=== PATIENT | female | born 1975 | race African-American/Black ===

== ENCOUNTER 2021-03-24 18:37 | Emergency (ER) | payer OTHER ==
[~2021-03-24] VITALS: Ht 162.6 cm; Wt 50.0 kg
[2021-03-24 21:00] VITALS: BP 139/83
--- NOTE | 2021-03-24 21:13 | PHYS DOC ---
General Adult EDM: Chief Complaint: HYPERGLYCEMIA HPI: HPI: Patient is a 45 year old female who presents with 1 day of excessive thirst, blurred vision, excessive urination, generalized weakness, nausea and vomiting. She states her only history is diabetes and she takes pills for diabetes. She cannot remember the name of these pills. Patient denies abdominal pain, burning with urination, fever, body aches, cough, chest pain, shortness of air, dizziness, headache, numbness or tingling, focal weakness, diarrhea. Received [employer] Covid vaccine. Review of Systems: Review of Systems: Constitutional: Denies fever or chills. [] Eyes: Denies change in visual acuity. [] HENT: Denies nasal congestion or sore throat. [] Respiratory: Denies cough or shortness of breath. [] Cardiovascular: Denies chest pain or edema. [] GI: Denies abdominal pain, +nausea, +vomiting, denies bloody stools or diar broderick. [] : Denies dysuria. Musculoskeletal: Denies back pain or joint pain. [] Integument: Denies rash. [] Neurologic: Denies headache, focal weakness or sensory changes. + Generalized weakness [] Endocrine: + polyuria or +polydipsia. [] Lymphatic: Denies swollen glands. [] Psychiatric: Denies depression or anxiety. [] Heart Score: C/O Chest Pain: No Current Medications: Current Medications Medications (Trade) Dose Ordered Sig/Nehemiah Start Time Stop Time Status Last Admin Dose Admin Metoclopramide HCl (Reglan Vial) 10 mg 1X ONCE 03/24/21 21:15 03/24/21 21:16 UNV Sodium Chloride 1,000 ml @ 1,000 mls/hr Q1H 03/24/21 21:15 03/24/21 22:14 UNV Physical Exam: PE: Constitutional: Well developed, well nourished, no acute distress, non-toxic appearance. [] HENT: Normocephalic, atraumatic, bilateral external ears normal, oropharynx moist, no oral exudates, nose normal. [] Eyes: PERRLA, EOMI, conjunctiva normal, no discharge. [] Neck: Normal range of motion, no tenderness, supple, no stridor. [] Cardiovascular:Heart rate regular rhythm, no murmur [] Lungs & Thorax: Bilateral breath sounds clear to auscultation [] Abdomen: Bowel sounds normal, soft, no tenderness, no masses, no pulsatile gerson s. [] Skin: Warm, dry, no erythema, no rash. [] Back: No tenderness, no CVA tenderness. [] Extremities: No tenderness, no cyanosis, no clubbing, ROM intact, no edema. [] Neurologic: Alert and oriented X 3, normal motor function, normal sensory function, no focal deficits noted. [] Psychologic: Affect normal, judgement normal, mood normal. [] Normal physical exam EKG: EK and read by Dr. Mukherjee as sinus rhythm and no STEMI Radiology/Procedures: Radiology/Procedures: [] Impression: [facility] [address] [place], [place] [id number] IMAGING REPORT Signed PATIENT: FERNANDO HARRISON ACCOUNT: [id number] : 1975 LOCATION: ER AGE: 45 SEX: F EXAM STATUS: REG ER ORD. PHYSICIAN: JERSEY GARIBAY APRN REASON: vomiting PROCEDURE: PORTABLE CHEST 1V Exam: Chest one view INDICATION: Vomiting TECHNIQUE: Frontal view of the chest Comparisons: None FINDINGS: The cardiomediastinal silhouette and pulmonary vessels are within normal limits. The lung and pleural spaces are clear. IMPRESSION: No acute cardiopulmonary process. Electronically signed by: Kuldip Sanders MD (03/24/2021 9:45 PM) [facility] DICTATED and SIGNED BY: KULDIP SANDERS MD DATE: 03/24/21 [id number] 0 Course & Med Decision Making: Course & Med Decision Making Pertinent Labs and Imaging studies reviewed. (See chart for details) See HPI. Alert and oriented x4. Ambulatory steady gait. Speaks in full clear sentences. Football Pad Repairer is used. Abdomen is soft and nontender. Skin pink warm and dry. Patient is given a liter of fluid and Rocephin. She does have a urinary tract infection. Blood sugar upon arrival was 367 after a liter of fluid that has gone down into the 200s without any medication. Patient is stable she can follow-up at [facility] in [facility] where she gets her medical care. I will write her an antibiotic for her urinary tract infection. Blood glucose recheck after bolus of fluid was 269. [] Carmen Disclaimer: Carmen Disclaimer: This electronic medical record was generated, in whole or in part, using a voice recognition dictation system. Departure Departure Impression: Primary Impression: Hyperglycemia Additional Impression: UTI (urinary tract infection) Qualified Codes: N39.0 - Urinary tract infection, site not specified Disposition: HOME / SELF CARE / HOMELESS Condition: STABLE Referrals: UNKNOWN PCP NAME (PCP) Patient Instructions: Hyperglycemia, Urinary Tract Infection Additional Instructions: Follow-up with your medical clinic as soon as possible. Drink plenty of fluids. Take medication as prescribed and with food. Continue taking your prescribed medications. If your symptoms worsen or you begin vomiting and cannot keep down fluids return to the emergency room. Scripts Cephalexin (KEFLEX) 500 Mg Capsule 1 CAP PO TID, #21 CAP Prov: JERSEY GARIBAY APRN 03/25/21 JERSEY GARIBAY APRN Mar 24, 2021 21:13
[2021-03-24] MEDS ORDERED: IV NORMAL SALINE 1000ML BAG 1,000 ML IV SCH (21:15)
[2021-03-24] MEDS ORDERED: METOCLOPRAMIDE HCL 10 MG/2 ML VIAL. IVP ONE (21:15)
[2021-03-24 21:22] LABS: BILIRUBIN,URINE NEGATIVE (NEG); CLARITY,URINE CLEAR; COLOR,URINE YELLOW; NITRITE,URINE NEGATIVE (NEG); PROTEIN,URINE 100 mg/dL (NEG-TRACE)
[2021-03-24 21:29] LABS: BACTERIA,URINE MODERATE /HPF (0-FEW); RBC,URINE OCC /HPF (0-2)
[2021-03-24] MEDS ORDERED: cefTRIAXone IV Push 1 GM VIAL. IVP ONE (21:45)
--- NOTE | 2021-03-24 21:47 | RAD ---
Exam: Chest one view INDICATION: Vomiting TECHNIQUE: Frontal view of the chest Comparisons: None FINDINGS: The cardiomediastinal silhouette and pulmonary vessels are within normal limits. The lung and pleural spaces are clear. IMPRESSION: No acute cardiopulmonary process. Electronically signed by: Kuldip Nix MD (03/24/2021 9:45 PM) ERASMO
[2021-03-24 21:49] LABS: BASO # 0.1 x10^3/uL (0.0-0.2); BASO % 1 % (0-3); EOS # 0.3 x10^3/uL (0.0-0.7); EOS % 3 % (0-3); HEMATOCRIT 40.4 % (36.0-47.0); HEMOGLOBIN 13.7 g/dL (12.0-15.5); LYMPH % 56 % (24-48); MEAN CORPUSCULAR HEMOGLOBIN 34 pg (25-35); MEAN CORPUSCULAR HGB CONC 34 g/dL (31-37); MEAN CORPUSCULAR VOLUME 100 fL (79-100); MONO # 0.6 x10^3/uL (0.0-1.1); MONO % 7 % (0-9); NEUT # 2.9 x10^3/uL (1.8-7.7); NEUT % 33 % (31-73); PLATELET COUNT 258 x10^3/uL (140-400); RED BLOOD COUNT 4.03 x10^6/uL (3.50-5.40); RED CELL DISTRIBUTION WIDTH 12.9 % (11.5-14.5); WHITE BLOOD COUNT 8.8 x10^3/uL (4.0-11.0)
[2021-03-24 21:57] LABS: CREATININE 0.9 mg/dL (0.6-1.0); GFR 81.2; POTASSIUM 4.4 mmol/L (3.5-5.1)
[2021-03-24 22:02] LABS: ALBUMIN 3.7 g/dL (3.4-5.0); ALBUMIN/GLOBULIN RATIO 0.8 (1.0-1.7); TOTAL BILIRUBIN 0.6 mg/dL (0.2-1.0); TOTAL PROTEIN 8.1 g/dL (6.4-8.2)
[2021-03-24 23:50] LABS: INFLUENZA A PATIENT NEGATIVE (NEGATIVE); INFLUENZA B PATIENT NEGATIVE (NEGATIVE)
[2021-03-25] MEDS ORDERED: CEPH500C PO (00:13)
--- NOTE | 2021-03-25 05:38 | EKG ---
[facility] [address] [place] [address] Test Date: 2021-03-24 Test Time: 23:01:31 Pat Name: FERNANDO HARRISON Department: Room: Gender: [employer] [place] [place]: : 1975 Requested By: JERSEY GARIBAY Order Number: [id number] Reading MD: Misael Castaneda MD Measurements Intervals [place] Rate: 73 P: 9 [place]: 134 QRS: 37 QRSD: 62 T: 7 QT: 384 QTc: 427 Interpretive Statements SINUS RHYTHM Electronically Signed On 03-25-2021 13:23:45 NIGHT CLUB MANAGER by Misael Castaneda MD
--- NOTE | 2021-03-25 15:19 | NUR ---
IP: Attempted to contact pt concerning covid results. No one in home speaks [place] and unable to understand. Will try transportation engineer line when available.
== END 2021-03-25 00:35 | disposition home or self-care (01) ==
LOC: ER 18:37
DX: E11.65 Type 2 diabetes mellitus with hyperglycemia (principal); N39.0 Urinary tract infection, site not specified; Z20.822 Contact with and (suspected) exposure to COVID-19
CPT/HCPCS: 36415; 71045; 80053; 81001; 82010; 82962; 83690; 85025; 87086; 87426; 87804; 93005; 96361; 96374; 96375; 99285; J0696; J2765; J7030; U0003; U0005